=== PATIENT | female | born 1940 | race Caucasian/White ===

== ENCOUNTER 2020-08-08 11:34 | Emergency (ER) | payer MEDICARE ==
[~2020-08-08] VITALS: Ht 157.5 cm; Wt 69.3 kg
[~2020-08-08 11:34] MED LIST: ACET-709 PO; ANTI DEPRESSANT PO; ASPI-963 PO; AZIT250T89 PO; CETI10CA PO; NICO-486 TD; PRED20TA PO; SIMV5TAB14 PO
--- NOTE | 2020-08-08 12:10 | NUR ---
assumed care of pt. pt here for R hip/groin/low abd pain for several weeks. pt reports that she has a hx of bursitis and thought that it was what was causing her pain. pt is ambulatory and has no other c/o at this time denies N/V, no urinary c/o EKG at bedside
--- NOTE | 2020-08-08 12:18 | NUR ---
pt ambulated to BR to attempt urine sample
--- NOTE | 2020-08-08 12:35 | NUR ---
report to Davian FOY for lunch
[2020-08-08 12:42] LABS: ALBUMIN 3.6 g/dL (3.4-5.0); ANION GAP 4 mmol/L (5-15); CALCIUM 8.9 mg/dL (8.5-10.1); CHLORIDE 107 mmol/L (98-107); CREATININE 0.88 mg/dL (0.55-1.02)
[2020-08-08 12:46] LABS: MICROSCOPIC INDICATED
[2020-08-08 12:47] LABS: BASOPHILS % (AUTO) 1 % (0-1); EOSINOPHILS % (AUTO) 2 % (1-7); LYMPHOCYTES % (AUTO) 25 % (22-44); MEAN CORPUSCULAR HEMOGLOBIN 31.8 pg (27.0-34.8); MEAN CORPUSCULAR HGB CONC 33.7 g/dL (32.4-35.8); MEAN PLATELET VOLUME 8.5 fL (7.4-10.4); MONOCYTES % (AUTO) 6 % (2-9); NEUTROPHILS % (AUTO) 66 % (42-75); PLATELET COUNT 298 x10^3/uL (130-400); RED BLOOD COUNT 4.78 x10^6/uL (3.82-5.3); RED CELL DISTRIBUTION WIDTH 14.3 % (9.6-15.2)
[2020-08-08 12:48] LABS: MD NO
[2020-08-08] MEDS ORDERED: CHOL10003 PO (12:59)
[2020-08-08] MEDS ORDERED: SERT100T32 PO (12:59)
[2020-08-08] MEDS ORDERED: ATOR40TA PO (12:59)
[2020-08-08] MEDS ORDERED: VIT1CAPS42 PO (12:59)
[2020-08-08] MEDS ORDERED: PANT40TA3 PO (12:59)
[2020-08-08] MEDS ORDERED: SODIUM CHLORIDE FLUSH 10ML SYR IVF ONE (13:00)
[2020-08-08] MEDS ORDERED: SODIUM CHLORIDE 0.9% 1,000ML IVBOLUS ONE (13:00)
[2020-08-08 13:04] LABS: ALANINE AMINOTRANSFERASE 21 U/L (12-78); ALKALINE PHOSPHATASE 73 U/L (45-117); BILIRUBIN,TOTAL 0.3 mg/dL (0.2-1.0)
--- NOTE | 2020-08-08 13:06 | NUR ---
LUNCH BREAK NOTE: ELSA-DAUGHTER IN LAW OF PATIENT WAITING IN PARKING LOT FOR NOTIFICATION ON WHETER SHE IS ADMITTED OR DISCHARGED. SHE CAN BE REACHED AT [phone].
--- NOTE | 2020-08-08 13:15 | NUR ---
pt to CT scan
--- NOTE | 2020-08-08 13:45 | NUR ---
report from estephania quintero
--- NOTE | 2020-08-08 13:52 | NUR ---
IV infusing. pt positioning for comfort. pt updated on POC. report to Her[facility] FOY
[2020-08-08] MEDS ORDERED: OMNIPAQUE 350 MG/ML, 100ML BOTTLE ONE (13:58)
--- NOTE | 2020-08-08 14:15 | NUR ---
PT CALMLY LAYING ON GURNEY, NAD/VSS. COMFORT MEASURES PROVIDED. FLUIDS INFUSING
[2020-08-08 14:44] VITALS: BP 126/45
--- NOTE | 2020-08-08 15:15 | NUR ---
Patient given discharge instructions and they have confirmed that they understand the instructions. Patient ambulatory with steady gait.
== END 2020-08-08 15:16 | disposition home or self-care (01) ==
LOC: ED 15:10
DX: K62.89 Other specified diseases of anus and rectum (principal); R10.32 Left lower quadrant pain; M54.5 Low back pain; M25.552 Pain in left hip; J44.9 Chronic obstructive pulmonary disease, unspecified; R94.31 Abnormal electrocardiogram [ECG] [EKG]; F17.200 Nicotine dependence, unspecified, uncomplicated
CPT/HCPCS: 36415; 74177; 80053; 81001; 83690; 85025; 87077; 87086; 93005; 96360; 96361; 99285; J7030; Q9967